=== PATIENT | male | born 1945 | race Caucasian/White ===

== ENCOUNTER 2017-12-28 12:02 | Inpatient (IN) | payer OTHER, MEDICARE ==
[~2017-12-28] VITALS: Ht 188 cm; Wt 79.9 kg
[2017-12-28] MEDS ORDERED: TAMS0.4C2 PO (12:26)
[2017-12-28] MEDS ORDERED: UMEC1DIS INH (12:28)
[2017-12-28] MEDS ORDERED: ALBU18HF INH (12:28)
[2017-12-28] MEDS ORDERED: SODIUM CHLORIDE 0.9%, 500ML IVBOLUS ONE ×2 (12:30→13:30)
[2017-12-28 13:05] LABS: ALANINE AMINOTRANSFERASE 27 U/L (12-78); ALBUMIN 2.1 g/dL (3.4-5.0); ANION GAP 12 mmol/L (5-15); CALCIUM 7.9 mg/dL (8.5-10.1); CHLORIDE 101 mmol/L (98-107); CREATININE 1.16 mg/dL (0.7-1.3)
[2017-12-28 13:09] LABS: INTERNATIONAL NORMALIZED RATIO 1.16 (0.93-1.1); PROTHROMBIN TIME 11.9 Seconds (9.6-11.5)
[2017-12-28 13:12] LABS: MD YES; MEAN CORPUSCULAR HEMOGLOBIN 29.6 pg (27.5-34.5); MEAN CORPUSCULAR HGB CONC 34.9 g/dL (33.2-36.2); MEAN CORPUSCULAR VOLUME 84.9 fL (81-97); MEAN PLATELET VOLUME 8.2 fL (7.4-10.4); PLATELET COUNT 154 x10^3/uL (130-400); RED BLOOD COUNT 3.11 x10^6/uL (4.38-5.82)
[2017-12-28 13:15] LABS: ANISOCYTOSIS 1+; BAND#(MANUAL) 0.57 x10^3/uL; BANDS%(MANUAL) 8 % (0-7); EOS#(MANUAL) 0.07 x10^3/uL (0.0-0.4); EOS% (MANUAL) 1 % (1-7); LYMPH#(MANUAL) 1.49 x10^3/uL (1-3.4); LYMPHS% (MANUAL) 21 % (22-44); METAMYELOCYTES# (MANUAL) 0.14 x10^3/uL (0-0); METAMYELOCYTES% (MANUAL) 2 % (0-1); MONOS#(MANUAL) 0.36 x10^3/uL (0.3-2.7); MONOS% (MANUAL) 5 % (2-9); MYELOCYTES# (MANUAL) 0.07 x10^3/uL (0-0); MYELOCYTES% (MANUAL) 1 % (0-0); NRBC % (MANUAL) 2 % (0-1); SEGS% (MANUAL) 62 % (42-75)
[2017-12-28 13:16] LABS: <PLATELET ESTIMATE> ADEQUATE; <PLT MORPHOLOGY> NORMAL PLT MORPH; POLYCHROMASIA 1+
[2017-12-28 13:19] LABS: ALKALINE PHOSPHATASE 2150 U/L (45-117); BILIRUBIN,TOTAL 1.1 mg/dL (0.2-1.0); TOTAL PROTEIN 6.4 g/dL (6.4-8.2)
[2017-12-28] MEDS ORDERED: PLEASE ENTER WEIGHT MC SCH (13:30)
[2017-12-28] MEDS ORDERED: VANCOMYCIN PER PHARMACY MC PRN ×3 (13:30→16:00)
[2017-12-28] MEDS ORDERED: PIPERACILLIN/TAZO/PMX 3.375GM 50 ML IV ONE (13:30)
[2017-12-28] MEDS ORDERED: PIPERACILLIN/TAZO/PMX 3.375GM 50 ML ONE (13:39)
[2017-12-28] MEDS ORDERED: VANCOMYCIN 1,400 MG in SODIUM CHLORIDE 0.9% 250 ML IV ONE (14:00)
[2017-12-28] MEDS ORDERED: SODIUM CHLORIDE 0.9% 1,000ML IVBOLUS ONE (14:30)
[2017-12-28 14:34] LABS: MICROSCOPIC AUTO
[2017-12-28 14:39] LABS: CULTURE INDICATED? YES
[2017-12-28] MEDS ORDERED: KETOROLAC 30 MG/1 ML IV PRN (15:00)
[2017-12-28] MEDS ORDERED: ACETAMINOPHEN 325 MG TABLET PO PRN (15:00)
[2017-12-28] MEDS ORDERED: POLYETHYLENE GLYCOL 17 GM PACKET PO PRN (15:00)
[2017-12-28] MEDS ORDERED: TEMPLATE NON-FORMULARY MED. (Albuterol Sulfate (Ventolin Hfa) 0 PUFF(S)) INH PRN (15:00)
[2017-12-28] MEDS ORDERED: ONDANSETRON 2MG/ML, 2ML IVPush PRN (15:00)
[2017-12-28] MEDS ORDERED: DOCUSATE 100 MG CAPSULE PO PRN (15:00)
[2017-12-28] MEDS ORDERED: hydrALAzine 20 MG/ML, 1ML IVPush PRN (15:00)
[2017-12-28] MEDS ORDERED: BISACODYL 10 MG SUPP PR PRN (15:00)
[2017-12-28 15:34] VITALS: BP 93/37
[2017-12-28] MEDS ORDERED: PHARMACOKINETIC MONITORING MC PRN (16:00)
[2017-12-28] MEDS: AMPICILLIN/SULBACTAM 3 GM in SODIUM CHLORIDE 0.9% 100 ML IV SCH (16:20)
[2017-12-28] MEDS: POTASSIUM CHLORIDE 20 MEQ TAB.ER.PRT PO SCH (16:46)
[2017-12-28] MEDS: ENOXAPARIN 40 MG/0.4 ML SQ SCH (16:46)
[2017-12-28] MEDS: NICOTINE 21 MG/24 HR PATCH.TD24 TD SCH (16:47)
[2017-12-28] MEDS: NS + 20MEQ KCL 1,000 ML IV SCH (16:53)
[2017-12-28 19:20] VITALS: BP 87/36
[2017-12-28 20:09] VITALS: BP 93/53
[2017-12-28] MEDS: TAMSULOSIN 0.4 MG CAP.ER.24H PO SCH (20:58)
[2017-12-28] MEDS: GUAIFENESIN ER 600 MG TABLET PO SCH (20:59)
[2017-12-28 23:21] LABS: OCCULT BLOOD NEGATIVE (NEGATIVE)
[2017-12-29] VITALS (9 sets, daily range): BP systolic 81–99; BP diastolic 34–51
[2017-12-29] MEDS: AMPICILLIN/SULBACTAM 3 GM in SODIUM CHLORIDE 0.9% 100 ML IV SCH ×4 (00:11→18:05)
[2017-12-29] MEDS: NS + 20MEQ KCL 1,000 ML IV SCH ×2 (04:55→16:00)
[2017-12-29 05:13] LABS: MEAN CORPUSCULAR HEMOGLOBIN 29.4 pg (27.5-34.5); MEAN CORPUSCULAR VOLUME 86.4 fL (81-97); MEAN PLATELET VOLUME 7.6 fL (7.4-10.4); PLATELET COUNT 108 x10^3/uL (130-400); RED BLOOD COUNT 2.56 x10^6/uL (4.38-5.82)
[2017-12-29 05:15] LABS: ALANINE AMINOTRANSFERASE 19 U/L (12-78); ALBUMIN 1.6 g/dL (3.4-5.0); ANION GAP 9 mmol/L (5-15); CALCIUM 7.4 mg/dL (8.5-10.1); CHLORIDE 107 mmol/L (98-107); CREATININE 0.56 mg/dL (0.7-1.3)
[2017-12-29 05:29] LABS: ALKALINE PHOSPHATASE 1607 U/L (45-117); BILIRUBIN,TOTAL 0.8 mg/dL (0.2-1.0); TOTAL PROTEIN 4.8 g/dL (6.4-8.2)
[2017-12-29 05:35] LABS: MD YES
[2017-12-29 05:37] LABS: BAND#(MANUAL) 0.37 x10^3/uL; BANDS%(MANUAL) 6 % (0-7); LYMPHS% (MANUAL) 18 % (22-44); METAMYELOCYTES# (MANUAL) 0.12 x10^3/uL (0-0); METAMYELOCYTES% (MANUAL) 2 % (0-1); MONOS#(MANUAL) 0.18 x10^3/uL (0.3-2.7); MONOS% (MANUAL) 3 % (2-9); MYELOCYTES# (MANUAL) 0.06 x10^3/uL (0-0); MYELOCYTES% (MANUAL) 1 % (0-0); SEG#(MANUAL) 4.27 x10^3/uL (1.8-6.8); SEGS% (MANUAL) 70 % (42-75)
[2017-12-29 05:38] LABS: ANISOCYTOSIS 1+; POLYCHROMASIA 1+
[2017-12-29 05:39] LABS: <PLATELET ESTIMATE> ADEQUATE; <PLT MORPHOLOGY> NORMAL PLT MORPH; TOXIC GRAN 1+
[2017-12-29] MEDS: GUAIFENESIN ER 600 MG TABLET PO SCH ×2 (08:24→21:29)
[2017-12-29] MEDS: POTASSIUM CHLORIDE 20 MEQ TAB.ER.PRT PO SCH ×2 (08:24→16:59)
[2017-12-29] MEDS: NICOTINE 21 MG/24 HR PATCH.TD24 TD SCH (08:26)
[2017-12-29] MEDS ORDERED: TEMPLATE NON-FORMULARY MED. (Umeclidinium Brm/Vilanterol Tr (Anoro Ellipta 62.5-25 Mcg Inh INH SCH (09:00)
[2017-12-29] MEDS ORDERED: SODIUM CHLORIDE 0.9% 1,000ML IVBOLUS ONE (10:00)
[2017-12-29] MEDS: OXYcodone/APAP 5/325MG TABLET PO PRN ×2 (12:11→17:11)
[2017-12-29] MEDS: VANCOMYCIN 1,400 MG in SODIUM CHLORIDE 0.9% 250 ML IV SCH (13:05)
[2017-12-29] MEDS ORDERED: VANCOMYCIN 1,400 MG in SODIUM CHLORIDE 0.9% 250 ML IV SCH (14:00)
[2017-12-29] MEDS: ENOXAPARIN 40 MG/0.4 ML SQ SCH (14:55)
[2017-12-29] MEDS: MORPHINE SULFATE 4 MG/ML, 1ML IVPush PRN (20:55)
[2017-12-29] MEDS: TAMSULOSIN 0.4 MG CAP.ER.24H PO SCH (21:29)
[2017-12-30] MEDS: NS + 20MEQ KCL 1,000 ML IV SCH (00:04)
[2017-12-30] MEDS: AMPICILLIN/SULBACTAM 3 GM in SODIUM CHLORIDE 0.9% 100 ML IV SCH ×4 (00:04→17:44)
[2017-12-30 03:20] VITALS: BP 96/40
[2017-12-30] MEDS ORDERED: OMNIPAQUE 350 MG/ML, 100ML BOTTLE ONE (04:07)
[2017-12-30 04:28] LABS: MEAN CORPUSCULAR HEMOGLOBIN 27.5 pg (27.5-34.5); MEAN CORPUSCULAR HGB CONC 32.8 g/dL (33.2-36.2); MEAN CORPUSCULAR VOLUME 83.9 fL (81-97); RED BLOOD COUNT 2.81 x10^6/uL (4.38-5.82); RED CELL DISTRIBUTION WIDTH 24.9 % (9.4-14.8)
[2017-12-30 04:39] LABS: ANION GAP 7 mmol/L (5-15); CALCIUM 7.8 mg/dL (8.5-10.1); CHLORIDE 110 mmol/L (98-107); CREATININE 0.42 mg/dL (0.7-1.3)
[2017-12-30 05:05] LABS: MD YES; MEAN PLATELET VOLUME 7.1 fL (7.4-10.4); PLATELET COUNT 101 x10^3/uL (130-400)
[2017-12-30 05:10] LABS: <PLATELET ESTIMATE> DECREASED; <PLT MORPHOLOGY> NORMAL PLT MORPH; ANISOCYTOSIS 1+; BAND#(MANUAL) 0.05 x10^3/uL; BANDS%(MANUAL) 1 % (0-7); LYMPH#(MANUAL) 1.72 x10^3/uL (1-3.4); LYMPHS% (MANUAL) 35 % (22-44); MONOS#(MANUAL) 0.15 x10^3/uL (0.3-2.7); MONOS% (MANUAL) 3 % (2-9); POLYCHROMASIA 1+; SEG#(MANUAL) 2.99 x10^3/uL (1.8-6.8); SEGS% (MANUAL) 61 % (42-75)
[2017-12-30 06:50] VITALS: BP 94/56
[2017-12-30] MEDS: OXYcodone/APAP 5/325MG TABLET PO PRN ×2 (07:59→22:21)
[2017-12-30] MEDS: VANCOMYCIN 1,400 MG in SODIUM CHLORIDE 0.9% 250 ML IV SCH (07:59)
[2017-12-30] MEDS: POTASSIUM CHLORIDE 20 MEQ TAB.ER.PRT PO SCH ×2 (10:12→17:00)
[2017-12-30] MEDS: GUAIFENESIN ER 600 MG TABLET PO SCH ×2 (10:12→20:47)
[2017-12-30] MEDS: NICOTINE 21 MG/24 HR PATCH.TD24 TD SCH (10:13)
[2017-12-30 13:40] VITALS: BP 90/56
[2017-12-30] MEDS: MORPHINE SULFATE 4 MG/ML, 1ML IVPush PRN (13:44)
[2017-12-30] MEDS: ENOXAPARIN 40 MG/0.4 ML SQ SCH (17:41)
[2017-12-30] MEDS: BICALUTAMIDE 50 MG TABLET PO SCH (17:43)
[2017-12-30 19:26] VITALS: BP 93/57
[2017-12-30] MEDS: TAMSULOSIN 0.4 MG CAP.ER.24H PO SCH (20:47)
[2017-12-30] MEDS: ALBUTEROL/IPRATROPIUM 2.5MG/0.5MG, 3 ML HHN SCH (21:00)
[2017-12-31] MEDS: AMPICILLIN/SULBACTAM 3 GM in SODIUM CHLORIDE 0.9% 100 ML IV SCH ×4 (00:13→18:00)
[2017-12-31] MEDS: NS + 20MEQ KCL 1,000 ML IV SCH ×2 (00:13→15:00)
[2017-12-31] MEDS: VANCOMYCIN 1,400 MG in SODIUM CHLORIDE 0.9% 250 ML IV SCH ×2 (01:03→18:00)
[2017-12-31 02:00] VITALS: BP 97/45
[2017-12-31] MEDS: ALBUTEROL/IPRATROPIUM 2.5MG/0.5MG, 3 ML HHN SCH ×3 (03:00→14:35)
[2017-12-31 08:19] VITALS: BP 94/50
[2017-12-31] MEDS: GUAIFENESIN ER 600 MG TABLET PO SCH (08:58)
[2017-12-31] MEDS: NICOTINE 21 MG/24 HR PATCH.TD24 TD SCH (08:59)
[2017-12-31] MEDS: BICALUTAMIDE 50 MG TABLET PO SCH (09:05)
[2017-12-31] MEDS ORDERED: OXYC1TAB7 PO (14:08)
[2017-12-31] MEDS ORDERED: BICA50TA5 PO (14:08)
[2017-12-31] MEDS ORDERED: LIDOCAINE-MPF 1%, 5ML ONE (14:10)
[2017-12-31] MEDS ORDERED: AMOX1TAB64 PO (14:24)
[2017-12-31] MEDS ORDERED: FLUMAZENIL 0.1 MG/1 ML, 5ML ONE (14:30)
[2017-12-31] MEDS ORDERED: MIDAZOLAM 1 MG/ML, 5ML ONE ×2 (14:30)
[2017-12-31] MEDS ORDERED: FENTANYL PF 100 MCG/2ML ONE ×2 (14:30)
[2017-12-31] MEDS ORDERED: NALOXONE 1 MG/ML, 2ML ONE (14:30)
[2017-12-31] MEDS: ENOXAPARIN 40 MG/0.4 ML SQ SCH (15:00)
== END 2017-12-31 18:15 | disposition hospice, home (50) | DRG 853 ==
LOC: ED 14:46 → EDIP 14:47 → 3NW 15:17
PROVIDERS: ADMIT Hospitalist; ATTEND Family Medicine
PROC: 0T9B70Z Drainage of Bladder with Drainage Device, Via Natural or Artificial Opening (ICD-10-PCS; 2017-12-28)
PROC: 0QB33ZX Excision of Left Pelvic Bone, Percutaneous Approach, Diagnostic (ICD-10-PCS; principal; 2017-12-31)
PROC: 0QB23ZX Excision of Right Pelvic Bone, Percutaneous Approach, Diagnostic (ICD-10-PCS; 2017-12-31)
DX: A41.9 Sepsis, unspecified organism (principal); E43 Unspecified severe protein-calorie malnutrition; J96.01 Acute respiratory failure with hypoxia; J18.1 Lobar pneumonia, unspecified organism; L03.115 Cellulitis of right lower limb; L03.113 Cellulitis of right upper limb; C79.51 Secondary malignant neoplasm of bone; R64 Cachexia; F17.210 Nicotine dependence, cigarettes, uncomplicated; D64.9 Anemia, unspecified; E87.6 Hypokalemia; R73.9 Hyperglycemia, unspecified; R74.8 Abnormal levels of other serum enzymes; Z68.22 Body mass index [BMI] 22.0-22.9, adult; C61 Malignant neoplasm of prostate; D63.0 Anemia in neoplastic disease; E86.0 Dehydration; J43.9 Emphysema, unspecified; K57.30 Diverticulosis of large intestine without perforation or abscess without bleeding; N28.1 Cyst of kidney, acquired; R04.0 Epistaxis; Z82.49 Family history of ischemic heart disease and other diseases of the circulatory system; Z90.89 Acquired absence of other organs
CPT/HCPCS: 36415; 84145; 99291; J7620; 20225; 71045; 71260; 74177; 77012; 78306; 80048; 80053; 81001; 82272; 83605; 83735; 83880; 84100; 84153; 85025; 85610; 85730; 87040; 87070; 87086; 87205; 88307; 88311; 93005; 94640; 96365; 99156; 99157; G0378; J0295; J1650; J1885; J2250; J2543; J3010; J3370; J3480; Q9967; A9503; C9898; G0103; J2310; J7030; J7040; J7050